=== PATIENT | male | born 1970 | race African-American/Black ===

== ENCOUNTER 2017-03-01 13:50 | Emergency (ER) | payer OTHER ==
[~2017-03-01] VITALS: Ht 185.4 cm; Wt 85.0 kg
[2017-03-01 13:53] VITALS: BP 132/76
[2017-03-01] MEDS ORDERED: ACETAMINOPHEN 325 MG TABLET PO ONE (14:30)
[2017-03-01 14:45] LABS: RAPID INFLUENZA A POSITIVE (Negative); RAPID INFLUENZA B Negative (Negative)
[2017-03-01] MEDS ORDERED: ACETAMINOPHEN 325 MG TABLET ONE (15:25)
== END 2017-03-01 15:38 | disposition home or self-care (01) ==
LOC: ED 15:00
DX: J10.1 Influenza due to other identified influenza virus with other respiratory manifestations (principal); Z87.01 Personal history of pneumonia (recurrent); Z98.890 Other specified postprocedural states
CPT/HCPCS: 71020; 87400

== ENCOUNTER → 2019-10-13 | Outpatient (CLI) | payer OTHER | END | disposition home or self-care (01) | LOC: CFH 15:53 | PROVIDERS: ATTEND Family Medicine | DX: R10.9 Unspecified abdominal pain (principal); M51.37 Other intervertebral disc degeneration, lumbosacral region | CPT/HCPCS: 74176 ==